=== PATIENT | female | born 1995 | race Caucasian/White ===

== ENCOUNTER 2023-04-16 13:56 | Inpatient (IN) | payer OTHER ==
[2023-04-16] MEDS ORDERED: Promethazine HCl 25 MG/ML VIAL IM PRN (14:36)
[2023-04-16] MEDS ORDERED: Ibuprofen 800 MG TAB PO PRN (14:36)
[2023-04-16] MEDS ORDERED: Lidocaine 1% (PF) 30 ML VIAL SC PRN (14:36)
[2023-04-16] MEDS ORDERED: Ondansetron PF 4 MG/2 ML Vial IVP PRN (14:36)
[2023-04-16] MEDS ORDERED: HYDROcodone/Acetaminophen 5/325 mg Tablet PO PRN ×2 (14:36)
[2023-04-16] MEDS ORDERED: hydrALAZINE 20 MG/ML VIAL SLOW IVP PRN (14:36)
[2023-04-16] MEDS ORDERED: Butorphanol Tartrate 1 MG/ML VIAL SLOW IVP PRN (14:36)
[2023-04-16] MEDS ORDERED: NS w/ Oxytocin 30 units 500 ML IV SCH ×3 (14:45)
[2023-04-16 15:29] LABS: Hematocrit 36.4 % (34.9-44.5); Hemoglobin 13.2 g/dL (12.0-15.5); Mean Corpuscular HGB CONC 36.3 g/dL (32.0-36.0); Mean Corpuscular Volume 88.1 fl (81.6-98.3); Mean Platelet Volume 11.1 fl (7.4-10.4); Platelet Count 277 10x3/uL (150-450); Red Blood Cell (RBC) Count 4.13 10x6/uL (3.90-5.03); White Blood Cell (WBC) Count 19.6 10x3/uL (3.5-10.5)
[2023-04-16 16:04] LABS: Syphilis Antibody Nonreactive (Nonreactive); Syphilis Antibody Index 0.04 S/CO (<1.00 Non-Reactive)
[2023-04-16 16:05] LABS: HBSAg Index 0.16 S/CO (0-0.99); Hep B Surf Ag - L&D Non-Reactive S/CO (NonReactive)
[2023-04-16 19:35] VITALS: BMI 35.4
[2023-04-16] MEDS ORDERED: Misoprostol 200 MCG TAB ONE (22:05)
[2023-04-16] MEDS ORDERED: Tranexamic Acid 1,000 MG/10 ML VIAL ONE (22:05)
[2023-04-17] MEDS: Lactated Ringer's 1,000 ML IV SCH ×2 (01:30→12:40)
[2023-04-17] MEDS ORDERED: fentaNYL/Ropivacaine Epidural 100 ML ONE (01:30)
[2023-04-17] MEDS ORDERED: Promethazine HCl 25 MG/ML VIAL IM PRN (02:06)
[2023-04-17] MEDS ORDERED: diphenhydrAMINE 50 MG/ML VIAL IVP PRN (02:06)
[2023-04-17] MEDS ORDERED: ePHEDrine Sulfate 50 MG/10 ML VIAL SLOW IVP PRN (02:06)
[2023-04-17] MEDS ORDERED: Naloxone HCl 0.4 mg/ml Vial IVP PRN ×2 (02:06)
[2023-04-17] MEDS ORDERED: Ondansetron PF 4 MG/2 ML Vial IVP PRN ×2 (02:06→12:35)
[2023-04-17] MEDS ORDERED: Moisturizing Cream (Eucerin) 113 GM JAR TOP PRN (02:06)
[2023-04-17] MEDS ORDERED: Lactated Ringer's 500 ML IV PRN (02:06)
[2023-04-17] MEDS ORDERED: Acetaminophen 325 MG TAB PO PRN (02:06)
[2023-04-17] MEDS ORDERED: fentaNYL 2 mcg/Ropivacaine 0.2% Epidural 100 ML CADD EPIDURAL SCH (02:15)
[2023-04-17] MEDS ORDERED: Communication Order-Pharmacy FS SCH (02:15)
[2023-04-17] MEDS ORDERED: NS w/ Oxytocin 30 units 500 ML IV SCH (12:35)
[2023-04-17] MEDS ORDERED: Preparation H Ointment 28 GM TUBE PR PRN (12:35)
[2023-04-17] MEDS ORDERED: hydrALAZINE 20 MG/ML VIAL SLOW IVP PRN (12:35)
[2023-04-17] MEDS ORDERED: diphenhydrAMINE 25 MG CAP PO PRN (12:35)
[2023-04-17] MEDS ORDERED: Boostrix 0.5 ML (Tdap) VIAL (>/=7 yrs of age) IM ONE (12:35)
[2023-04-17] MEDS ORDERED: Bisacodyl 10 MG SUPP PR PRN (12:35)
[2023-04-17] MEDS ORDERED: Milk Of Magnesia 30 ML UDCUP PO PRN (12:35)
[2023-04-17] MEDS ORDERED: Benzocaine-Menthol 82.5 ML CAN TOP PRN (12:35)
[2023-04-17] MEDS ORDERED: Lanolin Ointment 7 GM TUBE TOP PRN (12:35)
[2023-04-17] MEDS ORDERED: HYDROcodone/Acetaminophen 5/325 mg Tablet PO PRN ×2 (12:35)
[2023-04-17] MEDS ORDERED: Prenatal Vitamin 1 TAB PO SCH (13:00)
[2023-04-17] MEDS ORDERED: Docusate 100 MG CAP PO SCH (13:00)
[2023-04-17] MEDS: Ibuprofen 800 MG TAB PO SCH ×2 (13:11→21:26)
[2023-04-17] MEDS: Ferrous Sulfate 325 MG TAB PO SCH (17:38)
[2023-04-17] MEDS: Docusate 100 MG CAP PO SCH (21:23)
[2023-04-18] MEDS: Ibuprofen 800 MG TAB PO SCH ×3 (05:17→21:42)
[2023-04-18] MEDS: Ferrous Sulfate 325 MG TAB PO SCH ×2 (07:11→17:15)
[2023-04-18] MEDS: Prenatal Vitamin 1 TAB PO SCH ×2 (09:08→09:12)
[2023-04-18] MEDS: Docusate 100 MG CAP PO SCH ×2 (09:08→21:41)
[2023-04-19] MEDS: Ibuprofen 800 MG TAB PO SCH ×2 (05:35→15:15)
[2023-04-19] MEDS: Ferrous Sulfate 325 MG TAB PO SCH (07:28)
[2023-04-19] MEDS: Prenatal Vitamin 1 TAB PO SCH (08:53)
[2023-04-19] MEDS: Docusate 100 MG CAP PO SCH (08:53)
[2023-04-19 09:06] VITALS: BP 125/78; TEMP 98
== END 2023-04-19 15:10 | disposition home or self-care (01) | DRG 807 ==
LOC: CSHLD/OP 13:56 → CSHLD 15:00 → CSHPP 04-17 11:10
PROVIDERS: ADMIT Obstetrics & Gynecology; ATTEND Obstetrics & Gynecology
PROC: 0KQM0ZZ Repair Perineum Muscle, Open Approach (ICD-10-PCS; principal; 2023-04-17)
PROC: 10E0XZZ Delivery of Products of Conception, External Approach (ICD-10-PCS; 2023-04-17)
DX: O48.0 Post-term pregnancy (principal); Z37.0 Single live birth; O63.1 Prolonged second stage (of labor); Z3A.40 40 weeks gestation of pregnancy; O99.284 Endocrine, nutritional and metabolic diseases complicating childbirth; E03.9 Hypothyroidism, unspecified; O70.1 Second degree perineal laceration during delivery
CPT/HCPCS: 51701; 51702; 85027; 86780; 86850; 86900; 86901; 87340; 99285; J0360; J2590; J7120